=== PATIENT | female | born 1985 | race African-American/Black ===

== ENCOUNTER 2018-02-07 04:27 | Emergency (ER) | payer OTHER ==
[~2018-02-07] VITALS: Ht 175.3 cm; Wt 70.7 kg
[2018-02-07 05:28] VITALS: BP 133/94
== END 2018-02-07 05:32 | disposition home or self-care (01) ==
LOC: EME 04:27
DX: F11.23 Opioid dependence with withdrawal (principal); F31.9 Bipolar disorder, unspecified; F32.9 Major depressive disorder, single episode, unspecified; F17.200 Nicotine dependence, unspecified, uncomplicated; Z88.0 Allergy status to penicillin
CPT/HCPCS: 99281; 99283; Q0169